=== PATIENT | male | born 1950 | race Caucasian/White ===

== ENCOUNTER → 2016-04-23 | Outpatient (CLI) | payer MEDICARE, OTHER ==
[~2016-04-23] MED LIST: ALPR0.25 PO; ASP81CT PO; ASPI-266 PO; ASPI-892 PO; ATARAX; AZIT500T PO; CIPR500T78 PO; CITA10TA PO; CITA20TA12 PO; CLPD75T PO; COLE625T9 PO; DOCU100T7 PO; FAMO20TA5 PO; HYDR-700 PO; HYOS0.1216 PO; LANS15CA PO; LORA0.5T34 PO; MTP25TSR PO; MULT-851 PO; NYST1POW15 TOP; OMEG1CAP51 PO; OMEP-10 GT; OMEP20CA12 PO; OMEP20TA2 PO; ONDA-42 PO; ONDA-42 SL; OXYC-197 PO; PANT20TA2 PO; PANT40TA PO; PANT40TA3 PO; PRD20T PO; PREDNISONE; PRV20T PO; SCR1T1 PO; SENN1TAB6 PO; SUCR1TAB PO; TEMA30CA PO; mega red
--- OUTSIDE RECORDS SUMMARY | 2016-04-23 08:29 | XMS REPORT | Continuity of Care Document ---
Author Author [facility] Organization [facility] Address Unknown Phone Unavailable Allergies Active Description Code Type Severity Reaction Onset Reported/Identified Relationship to Patient Clinical Status Yes Cephalexin Monohydrate [id number] Drug Allergy Mild N/A 12/22/2010 Yes acetaminophen [id number] Drug Allergy Unknown N/A 02/24/2014 Yes hydrocodone [id number] Drug Allergy Unknown N/A 02/24/2014 Medications Problems Date Dx Coded Attending Type Code Diagnosis Diagnosed By 12/22/2010 Ot 455.0 INT HEMORRHOID W/O COMPL 12/22/2010 Ot 530.11 REFLUX ESOPHAGITIS 12/22/2010 Ot 553.3 DIAPHRAGMATIC HERNIA 12/22/2010 Ot V58.66 LONG-TERM (CURRENT) USE OF ASPIRIN 12/22/2010 Ot V58.69 OTH MED,LT,CURRENT USE 06/12/2011 Ot 275.2 DIS MAGNESIUM METABOLISM 06/12/2011 Ot 276.8 HYPOPOTASSEMIA 06/12/2011 Ot 530.81 ESOPHAGEAL REFLUX 06/12/2011 Ot 780.2 SYNCOPE AND COLLAPSE 06/12/2011 Ot 780.8 GENERALIZED HYPERHIDROSIS 06/12/2011 Ot 787.02 NAUSEA ALONE 02/24/2014 MCKENZIE LAWSON DO Ot 276.50 VOLUME DEPLETION, UNSPECIFIED 02/24/2014 MCKENZIE LAWSON DO Ot 599.0 URIN TRACT INFECTION NOS 02/24/2014 MCKENZIE LAWSON DO Ot 780.2 SYNCOPE AND COLLAPSE 02/24/2014 MCKENZIE LAWSON DO Ot 787.91 DIARRHEA 05/14/2014 EDY CLARK RADIOLOGY TECHNICIAN Ot 607.1 BALANOPOSTHITIS 05/14/2014 EDY CLARK RADIOLOGY TECHNICIAN Ot 789.01 ABDOMINAL PAIN, RIGHT UPPER QUADRANT 05/17/2014 MCKENZIE LAWSON DO Ot 569.3 RECTAL ANAL HEMORRHAGE 05/17/2014 MCKENZIE LAWSON DO Ot 573.8 LIVER DISORDERS NEC 05/17/2014 MCKENZIE LAWSON DO Ot 783.1 ABNORMAL WEIGHT GAIN 05/17/2014 MCKENZIE LAWSON DO Ot 789.00 ABDOMINAL PAIN, UNSPECIFIED SITE 05/17/2014 MKCENZIE LAWSON DO Ot 790.5 ABN SERUM ENZY LEVEL NEC 05/30/2014 LISA CHAN MD Ot 300.00 ANXIETY STATE NOS 05/30/2014 LISA CHAN MD Ot 786.05 SHORTNESS OF BREATH 05/30/2014 ALEXANDRA YEPEZ MD Ot 789.01 05/30/2014 GELLENDER DO, LIBRA Herman Ot 790.6 05/30/2014 GELLENDER DO, LIBRA Herman Ot V58.69 06/03/2014 GELLENDER DO, LIBRA A Ot 272.4 HYPERLIPIDEMIA NEC/NOS 06/03/2014 GELLENDER DO, LIBRA Herman Ot 300.00 ANXIETY STATE NOS 06/03/2014 GELLENDER DO, LIBRA A Ot 401.9 HYPERTENSION NOS 06/03/2014 GELLENDER DO, LIBRA A Ot 427.89 CARDIAC DYSRHYTHMIAS NEC 06/03/2014 GELLENDER , LIBRA A Ot 530.81 ESOPHAGEAL REFLUX 06/03/2014 GELLENDER DO, LIBRA A Ot 786.50 CHEST PAIN NOS 06/03/2014 GELLENDER , LIBRA A Ot 790.29 OTHER ABNORMAL GLUCOSE 06/07/2014 IRAJ MEYER MD Ot 780.2 SYNCOPE AND COLLAPSE 06/13/2014 ALEXANDRA YEPEZ MD Ot 530.11 REFLUX ESOPHAGITIS 06/13/2014 ALEXANDRA YEPEZ MD Ot 535.50 UNSP GASTRITIS GASTRODUODENITIS W/O ME 06/13/2014 ALEXANDRA YEPEZ MD Ot 553.3 DIAPHRAGMATIC HERNIA 06/18/2014 ALEXANDRA YEPEZ MD Ot 789.01 06/18/2014 GELLENDER DO, LIBRA A Ot 790.6 06/18/2014 GELLENDER DO, LIBRA A Ot V58.69 06/20/2014 BAISRINIVAS BRAN PROGRAM OFFICER Ot 272.4 06/20/2014 BAISRINIVAS BRAN L PROGRAM OFFICER Ot 780.2 06/20/2014 BAISRINIVAS BRAN L PROGRAM OFFICER Ot 786.50 06/26/2014 ANTHONY MONTIEL FACC, ALI FACP CCDS Ot 272.4 HYPERLIPIDEMIA NEC/NOS 06/26/2014 ANTHONY COOPER, ALI FACP CCDS Ot 300.00 ANXIETY STATE NOS 06/26/2014 ANTHONY MONTIEL FACC, ALI FACP CCDS Ot 414.01 CORONARY ATHEROSCLEROSIS OF [place] CORON 06/26/2014 ANTHONY MONTIEL FACC, ALI FACP CCDS Ot 414.4 CORONARY ATHEROSCLEROSIS DUE TO [place] 06/26/2014 ANTHONY MONTIEL FACC, ALI FACP CCDS Ot 553.3 DIAPHRAGMATIC HERNIA 06/26/2014 ANTHONY MONTIEL FACC, ALI FACP CCDS Ot 780.2 SYNCOPE AND COLLAPSE 06/26/2014 ANTHONY MONTIEL FACC, ALI FACP CCDS Ot 785.0 TACHYCARDIA NOS 06/26/2014 ANTHONY MONTIEL FACC, ALI FACP CCDS Ot 786.59 CHEST PAIN NEC 06/26/2014 ANTHONY COOPER, ALI FACP CCDS Ot V58.69 OTH MED,LT,CURRENT USE 06/27/2014 ALEXANDRA YEPEZ MD Ot 789.01 07/21/2014 SRINIVAS TEIXEIRA L PROGRAM OFFICER Ot 272.4 07/21/2014 MIKEMA SRINIVAS L PROGRAM OFFICER Ot 780.2 07/21/2014 BAIMA, SRINIVAS L PROGRAM OFFICER Ot 786.50 08/18/2014 VIANCA NG N RADIOLOGY TECHNICIAN Ot 789.00 10/19/2014 ALEXANDRA YEPEZ MD Ot 789.01 10/19/2014 ALEXANDRA YEPEZ MD Ot 789.01 10/19/2014 LIBRA BILLINGS DO Ot 790.6 10/19/2014 LIBRA BILLINGS DO Ot V58.69 10/19/2014 ALEXANDRA YEPEZ MD Ot V72.84 10/19/2014 BAIMA, SRINIVAS L PROGRAM OFFICER Ot 272.4 10/19/2014 BAIMA, SRINIVAS L PROGRAM OFFICER Ot 780.2 10/19/2014 BAIMA, SRINIVAS L PROGRAM OFFICER Ot 786.50 10/19/2014 VIANCA NG RADIOLOGY TECHNICIAN Ot 789.00 10/19/2014 VIANCA NG RADIOLOGY TECHNICIAN Ot 550.90 10/19/2014 VIANCA NG RADIOLOGY TECHNICIAN Ot 272.4 10/19/2014 VIANCA NG RADIOLOGY TECHNICIAN Ot 780.79 10/24/2014 DIA MONTIEL, MIGUEL Shaw Ot 550.90 UNILAT INGUINAL HERNIA 10/26/2014 VIANCA NG Emelyn RADIOLOGY TECHNICIAN Ot 550.90 10/26/2014 VIANCA NG RADIOLOGY TECHNICIAN Ot 272.4 10/26/2014 VIANCA NG RADIOLOGY TECHNICIAN Ot 780.79 07/30/2015 ALEXANDRA YEPEZ MD Ot 789.01 ABDOMINAL PAIN, RIGHT UPPER QUADRANT 07/30/2015 ALEXANDRA YEPEZ MD Ot 789.01 ABDOMINAL PAIN, RIGHT UPPER QUADRANT 07/30/2015 GELLENDER DO, LIBRA A Ot 790.6 ABN BLOOD CHEMISTRY NEC 07/30/2015 KAILYNLENDER DO, LIBRA A Ot V58.69 OTH MED,LT,CURRENT USE 07/30/2015 LUCHO MONTIEL, ALEXANDRA Ot V72.84 EXAM PRE-OPERATIVE NOS 07/30/2015 BAIMA, SRINIVAS L PROGRAM OFFICER Ot 272.4 HYPERLIPIDEMIA NEC/NOS 07/30/2015 BAIMA, SRINIVAS L PROGRAM OFFICER Ot 780.2 SYNCOPE AND COLLAPSE 07/30/2015 BAIMA, SRINIVAS L PROGRAM OFFICER Ot 786.50 CHEST PAIN NOS 07/30/2015 VIANCA NG Emelyn RADIOLOGY TECHNICIAN Ot 789.00 ABDOMINAL PAIN, UNSPECIFIED SITE 07/30/2015 VIANCA NG Emelyn RADIOLOGY TECHNICIAN Ot 550.90 UNILAT INGUINAL HERNIA 07/30/2015 VIANCA NG RADIOLOGY TECHNICIAN Ot 272.4 HYPERLIPIDEMIA NEC/NOS 07/30/2015 VIANCA NG RADIOLOGY TECHNICIAN Ot 780.79 OTH MALAISE FATIGUE 07/30/2015 DIA MONTIEL, MIGUEL Shaw Ot 550.90 UNILAT INGUINAL HERNIA 07/30/2015 DIA MONTIEL, MIGUEL Shaw Ot V72.83 EXAM PRE-OPERATIVE NEC 07/30/2015 DIA MONTIEL, MIGUEL Shaw Ot V74.8 SCREEN-BACTERIAL DIS NEC 08/01/2015 BAIMA, SRINIVAS L PROGRAM OFFICER Ot E78.5 HYPERLIPIDEMIA, UNSPECIFIED 08/01/2015 BAIMA, SRINIVAS L PROGRAM OFFICER Ot I25.10 ATHSCL HEART DISEASE OF [place] CORONARY 08/01/2015 BAIMA, SRINIVAS L PROGRAM OFFICER Ot R00.0 TACHYCARDIA, UNSPECIFIED 08/17/2015 BAIMA, SRINIVAS L PROGRAM OFFICER Ot E78.5 HYPERLIPIDEMIA, UNSPECIFIED 08/17/2015 BAIMA, SRINIVAS L PROGRAM OFFICER Ot I25.10 ATHSCL HEART DISEASE OF [place] CORONARY 08/17/2015 BAIMA, SRINIVAS L PROGRAM OFFICER Ot R00.0 TACHYCARDIA, UNSPECIFIED 08/20/2015 BAIMASRINIVAS L PROGRAM OFFICER Ot E78.5 HYPERLIPIDEMIA, UNSPECIFIED 08/20/2015 BAIMA SRINIVAS L PROGRAM OFFICER Ot I25.10 ATHSCL HEART DISEASE OF [place] CORONARY 08/22/2015 BAIRITESH BRANHER L PROGRAM OFFICER Ot E78.5 HYPERLIPIDEMIA, UNSPECIFIED 08/22/2015 BAIMA, SRINIVAS L PROGRAM OFFICER Ot I25.10 ATHSCL HEART DISEASE OF [place] CORONARY 08/29/2015 BETSY MONTIEL, IRAJ Lo Ot R22.0 LOCALIZED SWELLING, MASS AND LUMP, HEAD 08/29/2015 BETSY MONTIEL, IRAJ Lo Ot T37.0X5A ADVERSE EFFECT OF [place], INITIAL 09/10/2015 BAIMA SRINIVAS L PROGRAM OFFICER Ot E78.5 HYPERLIPIDEMIA, UNSPECIFIED 09/10/2015 BAIMA, SRINIVAS L PROGRAM OFFICER Ot I25.10 ATHSCL HEART DISEASE OF [place] CORONARY 10/10/2015 PUNEET SRINIVAS L PROGRAM OFFICER Ot E78.5 HYPERLIPIDEMIA, UNSPECIFIED 10/10/2015 BAIMA, SRINIVAS L PROGRAM OFFICER Ot I25.10 ATHSCL HEART DISEASE OF [place] CORONARY 11/05/2015 Ot E78.5 HYPERLIPIDEMIA, UNSPECIFIED 11/05/2015 Ot I25.10 ATHSCL HEART DISEASE OF [place] CORONARY 11/07/2015 Ot E78.5 HYPERLIPIDEMIA, UNSPECIFIED 11/07/2015 Ot I25.10 ATHSCL HEART DISEASE OF [place] CORONARY 11/13/2015 Ot E78.5 HYPERLIPIDEMIA, UNSPECIFIED 11/13/2015 Ot I25.10 ATHSCL HEART DISEASE OF [place] CORONARY 12/13/2015 ALEXANDRA YEPEZ MD Ot 789.01 ABDOMINAL PAIN, RIGHT UPPER QUADRANT 12/13/2015 ALEXANDRA YEPEZ MD Ot 789.01 ABDOMINAL PAIN, RIGHT UPPER QUADRANT 12/13/2015 LIBRA BILLINGS DO Ot 790.6 ABN BLOOD CHEMISTRY NEC 12/13/2015 LIBRA BILLINGS DO Ot V58.69 OT MED,LT,CURRENT USE 12/13/2015 ALEXANDRA YEPEZ MD Ot V72.84 EXAM PRE-OPERATIVE NOS 12/13/2015 SRINIVAS TEIXEIRA PROGRAM OFFICER Ot 272.4 HYPERLIPIDEMIA NEC/NOS 12/13/2015 SRINIVAS TEIXEIRA PROGRAM OFFICER Ot 780.2 SYNCOPE AND COLLAPSE 12/13/2015 BAIMA, SRINIVAS L PROGRAM OFFICER Ot 786.50 CHEST PAIN NOS 12/13/2015 VIANCA NG N RADIOLOGY TECHNICIAN Ot 789.00 ABDOMINAL PAIN, UNSPECIFIED SITE 12/13/2015 VIANCA NG N RADIOLOGY TECHNICIAN Ot 550.90 UNILAT INGUINAL HERNIA 12/13/2015 VIANCA NG N RADIOLOGY TECHNICIAN Ot 272.4 HYPERLIPIDEMIA NEC/NOS 12/13/2015 VIANCA NG RADIOLOGY TECHNICIAN Ot 780.79 OTH MALAISE FATIGUE 12/13/2015 DIA MONTIEL, MIGUEL Shaw Ot 550.90 UNILAT INGUINAL HERNIA 12/13/2015 DIA MONTIEL, MIGUEL Shaw Ot V72.83 EXAM PRE-OPERATIVE NEC 12/13/2015 DIA MONTIEL, MIGUEL Shaw Ot V74.8 SCREEN-BACTERIAL DIS NEC 12/13/2015 BAIMA, SRINIVAS L PROGRAM OFFICER Ot E78.5 HYPERLIPIDEMIA, UNSPECIFIED 12/13/2015 BAIMA, SRINIVAS L PROGRAM OFFICER Ot I25.10 ATHSCL HEART DISEASE OF [place] CORONARY 12/13/2015 BAIMA, SRINIVAS L PROGRAM OFFICER Ot R00.0 TACHYCARDIA, UNSPECIFIED 12/13/2015 BAIMA, SRINIVAS L PROGRAM OFFICER Ot E78.5 HYPERLIPIDEMIA, UNSPECIFIED 12/13/2015 BAIMA, SRINIVAS L PROGRAM OFFICER Ot I25.10 ATHSCL HEART DISEASE OF [place] CORONARY 12/13/2015 BAIMA, SRINIVAS L PROGRAM OFFICER Ot E78.5 HYPERLIPIDEMIA, UNSPECIFIED 12/13/2015 BAIMA, SRINIVAS L PROGRAM OFFICER Ot I25.10 ATHSCL HEART DISEASE OF [place] CORONARY 12/13/2015 Ot E78.5 HYPERLIPIDEMIA, UNSPECIFIED 12/13/2015 Ot I25.10 ATHSCL HEART DISEASE OF [place] CORONARY 12/16/2015 BAIMA, SRINIVAS L PROGRAM OFFICER Ot E78.5 HYPERLIPIDEMIA, UNSPECIFIED 12/16/2015 BAIMA, SRINIVAS L PROGRAM OFFICER Ot I25.10 ATHSCL HEART DISEASE OF [place] CORONARY 12/25/2015 BAIMA, SRINIVAS L PROGRAM OFFICER Ot E78.5 HYPERLIPIDEMIA, UNSPECIFIED 12/25/2015 BAIMA, SRINIVAS L PROGRAM OFFICER Ot I25.10 ATHSCL HEART DISEASE OF [place] CORONARY Procedures Results Encounters ACCT No. Visit Date/Time Discharge Status Pt. Type Provider Facility Loc./Unit Complaint [id number] 08/29/2015 16:37:00 2015 18:06:00 DIS Emergency BETSY MONTIEL, IRAJ Lo [facility] ER RASH,FEVER [id number] 10/24/2014 09:09:00 2014 17:37:00 DIS Outpatient MIGUEL ALVARES MD [facility] RIGHT INGUINAL HERNIA [id number] 10/19/2014 13:55:00 2014 23:59:59 CLS Outpatient MIGUEL ALVARES MD [facility] PREOP RIGHT INGUINAL HERNIA [id number] 10/11/2014 12:14:00 2014 23:59:59 CLS Outpatient VIANCA NG RADIOLOGY TECHNICIAN [facility] RAD ENLARGED TESTICLE [id number] 10/11/2014 06:34:00 2014 23:59:59 CLS Outpatient VIANCA NG RADIOLOGY TECHNICIAN [facility] LAB MALAISE,FATIGUE,HLP [id number] 07/05/2014 13:41:00 2014 23:59:59 CLS Outpatient VIANCA NG RADIOLOGY TECHNICIAN [facility] RAD ABD PAIN, [id number] 06/25/2014 06:56:00 2014 09:50:00 DIS Outpatient ANTHONY MONTIEL FACC, LUCA BOTELLO CCDS [facility] CATH ABNORMAL STRESS, ANGINA, NEAR SYNCOPE,SOB [id number] 06/19/2014 07:30:00 2014 23:59:59 CLS Outpatient SRINIVAS TEIXEIRA [facility] CARD NEAR SYNCOPE, CP, HLP [id number] 06/13/2014 07:31:00 2014 11:35:00 DIS Outpatient ALEXANDRA YEPEZ MD [facility] ABDOMINAL PAIN [id number] 06/11/2014 06:15:00 2014 23:59:59 CLS Outpatient ALEXANDRA YEPEZ MD [facility] PREOP ABDOMINAL PAIN [id number] 06/07/2014 08:33:00 2014 11:16:00 DIS Emergency IRAJ MEYER MD [facility] ER SYNCOPAL EPISODE [id number] 06/04/2014 08:54:00 2014 23:59:59 CLS Outpatient ALEXANDRA YEPEZ MD [facility] CARD ABD PAIN [id number] 06/02/2014 10:25:00 2014 18:30:00 DIS Inpatient LIBRA BILLINGS DO [facility] ICU CHEST PAIN,ANXIETY [id number] 05/30/2014 01:12:00 2014 02:51:00 DIS Emergency LISA CHAN MD [facility] ER POSS ALLERGIC RXN [id number] 05/24/2014 06:55:00 2014 23:59:59 CLS Outpatient LIBRA BILLINGS DO [facility] LAB ELEVATED LIVER TEST [id number] 05/24/2014 06:51:00 2014 23:59:59 CLS Outpatient ALEXANDRA YEPEZ MD [facility] RAD RUQ PAIN [id number] 05/17/2014 10:42:00 2014 12:45:00 DIS Emergency RENNY MCKENZIE MCKEON [facility] ER BLOOD IN STOOL [id number] 05/14/2014 12:14:00 2014 16:54:00 DIS Emergency EDY CLARK RADIOLOGY TECHNICIAN [facility] ER ABD PAIN [id number] 02/24/2014 08:05:00 2014 10:52:00 DIS Emergency RENNY MCKENZIE [facility] ER COLLAPSED [id number] 08/30/2012 07:59:00 2012 23:59:59 CLS Outpatient [id number] 12/13/2015 08:18:00 ACT Outpatient SRINIVAS TEIXEIRA [facility] LAB HEPERLIPIDEMIA [id number] 10/30/2015 07:59:00 Document Registration [id number] 10/09/2015 08:01:00 ACT Outpatient SRINIVAS TEIXEIRA [facility] LAB CAD,HLD [id number] 08/19/2015 07:26:00 ACT Outpatient SRINIVAS TEIXEIRA [facility] LAB CAD,HLD [id number] 07/30/2015 07:09:00 ACT Outpatient SRINIVAS TEIXEIRA [facility] RAD CAD HLD SINUS TACHYCARDIA [id number] 06/11/2011 17:40:00 Document Registration [id number] 12/22/2010 07:42:00 Document Registration
--- NOTE | 2016-04-23 13:16 | Diagnostic Imaging Report ---
Ultrasound of the liver. INDICATION: Abnormal liver function. FINDINGS: The pancreas is largely obscured by bowel gas. The liver demonstrates a simple cyst between the IVC and the portal vein area in the posterior central aspect of the liver. This is similar to CT of 05/17/2014 00 with no adverse development. No other liver lesion is identified. The portal vein demonstrates hepatopetal flow. Gallstone is seen. There is no pericholecystic fluid or wall thickening. The CBD is obscured by bowel gas. The right kidney is 10.2 cm in length with no hydronephrosis or focal lesion. Sonographic Baptiste sign is reportedly negative. IMPRESSION: Cholelithiasis. Dictated by: Dictated on workstation # [id number]
== END ==
LOC: RAD 08:25
PROVIDERS: ATTEND Nurse Practitioner Family
DX: K76.89 Other specified diseases of liver (principal)
CPT/HCPCS: 76705

== ENCOUNTER → 2016-06-11 | Outpatient (CLI) | payer MEDICARE, OTHER ==
[~2016-06-11] VITALS: Ht 172.7 cm; Wt 105.2 kg
[~2016-06-11] MED LIST changes: +CATHETER FLUSH 10 ML SYR IV PRN; +REGADENOSON 0.4 MG/5 ML SYR (LEXISCAN) IV ONE
[2016-06-11 09:20] VITALS: BP 136/83
--- NOTE | 2016-06-15 05:59 | STRESS TEST ---
DATE OF SERVICE: 06/11/2016 Resting and post regadenoson, technetium-99m tetrofosmin single-photon emission commuted tomography DATE OF SERVICE: 06/11/16. ORDERING PHYSICIAN: Kirti Sun APRN. PRIMARY PHYSICIAN: Dr. Kitchen. OTHER PHYSICIAN: Dr. Cruz. CLINICAL DIAGNOSES: Chest pain, coronary artery disease, hyperlipidemia. Baseline images were carried out after injection of 10.17 mCi of technetium-99m Tetrofosmin. This was followed by 0.4 mg of regadenoson and 31.5 mCi of technetium-99m Tetrofosmin for SPECT imaging. Review of images addressed following stress indicates a small to moderate basal inferior perfusion defect which is transient. Gated images show normal global left ventricular systolic function with normal regional wall motion. Left ventricular ejection fraction is calculated to be 78%. Left ventricular end-diastolic volume is 59 mL. CONCLUSIONS: 1. The study is indicative of a small to moderate amount of basal inferior ischemia. 2. Normal regional wall motion. 3. Normal global left ventricular systolic function with a calculated ejection fraction of 78%. 4. Normal left ventricular cavity size. Job ID: [id number] DocumentID: [id number] Dictated Date: 06/12/2016 15:09:59 Booking Clerk Date: 06/12/2016 16:54:21 Dictated By: LUCA CRUZ MD, MA, FACP, FACC, MTDD
== END ==
LOC: CARD 07:38
PROVIDERS: ATTEND Nurse Practitioner Family
DX: I25.10 Atherosclerotic heart disease of native coronary artery without angina pectoris (principal); I65.23 Occlusion and stenosis of bilateral carotid arteries; E78.4 Other hyperlipidemia; I07.1 Rheumatic tricuspid insufficiency; R07.89 Other chest pain
CPT/HCPCS: 78452; 93017

== ENCOUNTER → 2016-06-15 | Outpatient (CLI) | payer MEDICARE, OTHER ==
[~2016-06-15] MED LIST changes: -CATHETER FLUSH 10 ML SYR IV PRN; -REGADENOSON 0.4 MG/5 ML SYR (LEXISCAN) IV ONE
--- NOTE | 2016-06-17 10:33 | ECHOCARDIOGRAPHY REPORT ---
DATE OF SERVICE: 06/15/2016 ORDERING PHYSICIAN: Kirti Sun APRN. PRIMARY CARE PHYSICIAN: Dr. Stanford. OTHER PHYSICIAN: Dr. Cruz. CLINICAL DIAGNOSES: Chest pain, coronary artery disease. MEASUREMENTS: Aortic root, 3.1. Left atrium, 3.4. LV diameter, diastolic, 3.6. IVS thickness, diastolic, 1.1. LVPW thickness, diastolic, 1.1. DESCRIPTION: This is a technically somewhat difficult study. Global left ventricular systolic function is well preserved. No distinct regional wall motion abnormality is seen, on the views available. The left ventricular ejection fraction is approximately 60%. Aortic, mitral, and tricuspid valve leaflets, to the extent seen, exhibit good leaflet excursion. No significant pericardial effusion is seen. Doppler imaging does not indicate any significant valvular regurgitation or stenosis. Pulmonary artery systolic pressure is estimated to be within normal limits. CONCLUSIONS: 1. Technically difficult study. 2. Normal global left ventricular systolic function with an ejection fraction approximately 65%. 3. No evidence of significant valvular regurgitation or stenosis on this study. Job ID: [id number] DocumentID: [id number] Dictated Date: 06/16/2016 16:41:11 Marine Geologist Date: 06/17/2016 08:32:21 Dictated By: LUCA CRUZ MD, MA, FACP, FACC,
== END ==
LOC: CARD 14:08
PROVIDERS: ATTEND Nurse Practitioner Family
DX: R07.89 Other chest pain (principal); I25.10 Atherosclerotic heart disease of native coronary artery without angina pectoris; I65.23 Occlusion and stenosis of bilateral carotid arteries; E78.4 Other hyperlipidemia; I07.1 Rheumatic tricuspid insufficiency
CPT/HCPCS: 93306

== ENCOUNTER 2016-06-23 08:17 | Day surgery (SDC) | payer MEDICARE, OTHER ==
[~2016-06-23] VITALS: Ht 172.7 cm; Wt 105.2 kg
[~2016-06-23 08:17] MED LIST changes: -COLE625T9 PO; -MULT-851 PO; -PANT40TA3 PO
[2016-06-23] MEDS ORDERED: LIDOCAINE 1% INJ 20 ML (XYLOCAINE) VIAL ONE (08:58)
[2016-06-23] MEDS ORDERED: NS IV 1000 ML 1,000 ML ONE ×2 (08:58→13:54)
[2016-06-23] MEDS ORDERED: HEParin (CATH LAB) 2,000 ML IV ONE (08:59)
[2016-06-23] MEDS ORDERED: NS IV 1000 ML 1,000 ML IV SCH ×2 (09:08→14:58)
[2016-06-23 09:16] VITALS: BP 144/82
[2016-06-23 09:28] LABS: MEAN PLATELET VOLUME 10.6 FL (7.4-10.4); RED BLOOD COUNT 5.15 10^6/uL (4.35-5.85); RED CELL DISTRIBUTION WIDTH 14.2 % (10.0-14.5); WHITE BLOOD COUNT 7.5 10^3/uL (4.3-11.0)
[2016-06-23 09:42] LABS: INR 0.9 (0.8-1.4); PROTHROMBIN TIME PATIENT 12.3 SEC (12.2-14.7)
[2016-06-23 09:46] LABS: ALANINE AMINOTRANSFERASE 62 U/L (0-55); ALBUMIN 4.4 G/DL (3.2-4.5); ANION GAP 10 MMOL/L (5-14); ASPARTATE AMINO TRANSFERASE 61 U/L (5-34); BLOOD UREA NITROGEN 13 MG/DL (7-18); BUN/CREATININE RATIO 14; CALCIUM 9.3 MG/DL (8.5-10.1); CARBON DIOXIDE 23 MMOL/L (21-32); CHLORIDE 108 MMOL/L (98-107); CREATININE SERUM 0.96 MG/DL (0.60-1.30); GFR ESTIMATED > 60; GLUCOSE 102 MG/DL (70-105); SODIUM 141 MMOL/L (135-145); TOTAL PROTEIN 7.3 G/DL (6.4-8.2)
[2016-06-23] MEDS ORDERED: PANT40TA3 PO (10:11)
[2016-06-23] MEDS ORDERED: MULT-851 PO (10:11)
[2016-06-23] MEDS ORDERED: COLE625T9 PO (10:11)
[2016-06-23] MEDS ORDERED: diphenhydrAMINE 50 MG/ML INJ (BENADRYL) ONE (13:02)
[2016-06-23] MEDS ORDERED: fentaNYL INJECTION 100 MCG/2 ML AMP ONE (13:02)
[2016-06-23] MEDS ORDERED: MIDAZOLAM 5 MG/5 ML (VERSED) VIAL ONE (13:02)
--- NOTE | 2016-06-23 13:34 | Cardiac Procedure Note-CS/ASA ---
Pre-Procedure Note Pre-Op Procedure Note H&P Reviewed The H&P was reviewed, patient examined and no changes noted. Date H&P Reviewed: June 23, 2016 Time H&P Reviewed: 13:33 Conscious Sedation Pre-Proced Time Reviewed: 13:33 ASA Class: 3 Airway Mallampati Classification: (port lions appropriate class) I. II. III, IV Lungs Heart ASA score ASA 1: a normal healthy patient ASA 2: a patient with a mild systemic disease (mid diabetes, controlled hypertension, obesity ASA 3: a patient with a severe systemic disease that limits activity (angina , COPD, prior Myocardial infarction) ASA 4: a patient with an incapacitating disease that is a constant threat to life (CHF, renal failure) ASA 5: a moribund patient not expected to survive 24 hrs. (ruptured aneurysm) ASA 6: a declared brain patient whose organs are being harvested. For emergent operations, add the letter E after the classification Grade 2 Sedation Plan: Analgesia, Amnesia, Plan communicated to team members, Discussed options with patient/fam, Discussed risks with patient/fam Note The patient is an appropriate candidate to undergo the planned procedure, sedation, and anesthesia. The patient immediately re-assessed prior to indication. LUCA CRUZ MD FACP FAC CCDS June 23, 2016 13:34
[2016-06-23] MEDS ORDERED: ADENOSINE 3 MG/1 ML (ADENOSCAN) 30ML VIAL IV ONE (13:39)
[2016-06-23] MEDS ORDERED: HEParin 1000 UNIT/ML (10ML VIAL) FOR BOLUS ONE (13:39)
[2016-06-23] MEDS ORDERED: NITROGLYCERIN DRIP 25 MG/D5W 250 ML IV ONE (13:43)
[2016-06-23] MEDS ORDERED: EPTIFIBATIDE BOLUS 20 ML IV ONE (13:46)
[2016-06-23] MEDS ORDERED: EPTIFIBATIDE DRIP 100 ML IV ONE (13:59)
[2016-06-23] MEDS ORDERED: NS IV 1000 ML 1,000 ML IV ONE (14:00)
[2016-06-23] MEDS ORDERED: PATIENT MAY USE OWN MEDS, ALL PO SCH (15:00)
[2016-06-23] MEDS: EPTIFIBATIDE DRIP 100 ML IV SCH ×2 (15:00→17:47)
[2016-06-23 15:05] VITALS: BP 111/72
--- NOTE | 2016-06-23 15:28 | Cardiology Discharge Summary ---
Diagnosis/Chief Complaint Date of Admission 06/23/16 Date of Discharge 06/23/16 Final/Discharge Diagnosis CAD: Cath of 06/23/16 shows CAD primarily consisting of 95% prox RCA stenosis, prox to a previously placed 2.25 x 25 mm stent that also exhibits 80-90% instent restenosis. Attempts at intervention to this vessel were unsuccessful. The other cors have mild disease. LVEF 60%, normal LVEDP Hyperlipidemia Intolerance to stains H/o GERD and HH Chief Complaint/HPI Chief Complaint/HPI Please refer to H&P for details of admission and cath and intervention report for procedures performed today Being transferred to [facility] for consideration of further cor intervention/ bypass (Dr Monroy at [facility], [place]) Discharge Summary Procedures Card cath and cor intervention (see report). Hospital Course Pending Labs Laboratory Tests 06/23/16 09:20: White Blood Count 7.5, Red Blood Count 5.15, Hemoglobin 16.0, Hematocrit 48, Mean Corpuscular Volume 93, Mean Corpuscular Hemoglobin 31, Mean Corpuscular Hemoglobin Concent 33, Red Cell Distribution Width 14.2, Platelet Count 229, Mean Platelet Volume 10.6, Prothrombin Time 12.3, INR Comment 0.9, Activated Partial Thromboplast Time 26, Sodium Level 141, Potassium Level 4.0, Chloride Level 108, Carbon Dioxide Level 23, Anion Gap 10, Blood Urea Nitrogen 13, Creatinine 0.96, Estimat Glomerular Filtration Rate > 60, BUN/Creatinine Ratio 14, Glucose Level 102, Calcium Level 9.3, Total Bilirubin 1.0, Aspartate Amino Transf (AST/SGOT) 61, Alanine Aminotransferase (ALT/SGPT) 62, Alkaline Phosphatase 76, Total Protein 7.3, Albumin 4.4 Discussion & Recommendations Home Medications Reviewed patient Home Medication Reconciliation Form Discharge Home Medications: Reviewed and agree with Discharge Medication list on patient's Discharge Instruction sheet [facility] CRUZ MD [facility] F[facility] CCD[facility] June 23, 2016 15:28
--- NOTE | 2016-06-23 18:28 | CARDIAC CATHETERIZATION ---
DATE OF SERVICE: 06/23/2016 The patient is a 66-year-old gentleman who is known to have coronary disease and has had right coronary artery stenting consisting of a 2.25x25 mm stent a few years back. A recent myocardial perfusion imaging study indicated considerable basal inferior ischemia. Cardiac catheterization is carried out today after having obtained an informed consent for cardiac catheterization and possible ad hoc coronary intervention. PROCEDURE: He was brought to the cardiac catheterization laboratory in a fasting state. The right groin was prepared and draped in the usual sterile fashion and 1% lidocaine was used for local anesthesia. Modified Seldinger technique was used to advance a 5 Kazakh sheath through the right femoral artery. A 5 Kazakh JL4 catheter was used for left coronary angiography. A 5 Kazakh JR4 catheter was used for right coronary angiography. A 5 Kazakh pigtail catheter was used for left heart catheterization and left ventricular angiography. PERCUTANEOUS INTERVENTION TO THE RIGHT CORONARY ARTERY: Following completion of the diagnostic procedure, we carried out percutaneous intervention of the right coronary artery. We exchanged the sheath over a wire for a 6 Kazakh sheath. We gave 5000 units of intravenous heparin bolus and a double bolus of Integrilin was given and Integrilin infusion was continued throughout the procedure. We used a 6 Kazakh JR for guide catheter with side holes to engage the right coronary artery. We used multiple wires to try and cross the lesion in the proximal right coronary artery but were unable to do so. We then also used a 300 mm BMW wire within a push balloon and the balloon was pushed right up to the lesion but we were still unable to cross the lesion. The lesion remained essentially unchanged at the conclusion of the procedure. The flow throughout the distal vessel prior to the procedure was MATY 2. Following the procedure, the flow was MATY 1 to 2. He does not have ST elevation and does not report chest disco and is hemodynamically stable. We called Dr. Monroy of the cardiovascular service at [facility] and have requested to transfer the patient for further attempts at intervention and to see if the vessel would require bypass surgery. Dr. Monroy has kindly accepted the transfer and arrangements are being made. HEMODYNAMICS: Left ventricular end-diastolic pressure following coronary angiography was 7 mmHg. There was no significant pressure gradient on pullback across the aortic valve. Ascending aortic pressure was 114/67 with a mean of 86 mmHg. LEFT VENTRICULAR ANGIOGRAPHY: Left ventricular angiography was carried out in the right anterior oblique projection. Global left ventricular systolic function is normal. Left ventricular ejection fraction is approximately 60%. CORONARY ANGIOGRAPHY: Left main coronary artery does not appear to have significant obstructive disease. Left anterior descending artery has approximately 40% proximal stenosis. Left circumflex artery has mild diffuse plaques. Right coronary artery is dominant and has 95% proximal stenosis, proximal to a previously placed stent. The previously placed stent is patent but does exhibit 80% to 90% instent restenosis. This lesion remains unchanged despite multiple efforts at percutaneous intervention. CONCLUSIONS: 1. Coronary artery disease primarily consisting of 95% stenosis proximal to the proximal edge of the previously placed stent which itself exhibits 80% to 90% instent restenosis. The distal flow is somewhat slow. The lesion remains unchanged despite multiple attempts at coronary intervention today, as detailed above. 2. Normal global left ventricular systolic function with ejection fraction of approximately 60%. 3. Normal left ventricular end diastolic pressure. RECOMMENDATIONS: As stated above, we have spoken with Dr. Monroy of the cardiovascular services at [facility] and have requested transfer to [facility] for consideration of further intervention/bypass surgery to the vessel. The sheath remains in place. The patient is hemodynamically stable and asymptomatic. Integrilin infusion is being continued for now. Arrangements are being made for transfer. Job ID: [id number] DocumentID: [id number] Dictated Date: 06/23/2016 15:19:35 Computed Tomography Technologist Date: 06/23/2016 18:27:14 Dictated By: LUCA CRUZ MD, MA, FACP, FACC, MTDD
== END 2016-06-23 18:00 | disposition short-term general hospital (02) ==
LOC: CATH 08:17 → ICU 15:23 → CATH 18:00
PROVIDERS: ATTEND Internal Medicine Cardiovascular Disease
DX: I25.10 Atherosclerotic heart disease of native coronary artery without angina pectoris (principal); T82.855A Stenosis of coronary artery stent, initial encounter; F41.9 Anxiety disorder, unspecified; K44.9 Diaphragmatic hernia without obstruction or gangrene; Z79.899 Other long term (current) drug therapy; Z95.5 Presence of coronary angioplasty implant and graft
CPT/HCPCS: 36415; 80053; 85027; 85610; 85730; 87081; 92920; 93458

== ENCOUNTER → 2018-06-27 | Outpatient (CLI) | payer MEDICARE, OTHER ==
[~2018-06-27] MED LIST changes: +COLE625T9 PO; +MULT-851 PO; -OXYC-197 PO; +OXYC1TAB87 PO; +PANT40TA3 PO
== END ==
LOC: CARD 11:15
PROVIDERS: ATTEND Internal Medicine Cardiovascular Disease
DX: I25.10 Atherosclerotic heart disease of native coronary artery without angina pectoris (principal); E78.5 Hyperlipidemia, unspecified; R06.02 Shortness of breath; E66.9 Obesity, unspecified; Z68.35 Body mass index [BMI] 35.0-35.9, adult
CPT/HCPCS: 93306

== ENCOUNTER → 2018-06-28 | Outpatient (CLI) | payer MEDICARE, OTHER ==
[~2018-06-28] VITALS: Ht 172.7 cm; Wt 98.0 kg
[~2018-06-28] MED LIST changes: +CATHETER FLUSH 10 ML SYR IV PRN; +REGADENOSON 0.4 MG/5 ML SYR (LEXISCAN) IV ONE
[2018-06-28 09:17] VITALS: BP 149/86
--- NOTE | 2018-06-28 16:11 | STRESS TEST ---
DATE OF SERVICE: 06/28/2018 RESTING AND POST REGADENOSON TECHNETIUM-99M TETROFOSMIN SPECT CT IMAGING ORDERING PHYSICIAN: Dr. Mora. PRIMARY PHYSICIAN: Dr. Stanford. CLINICAL DIAGNOSES: Coronary artery disease, shortness of breath. Baseline images were carried out after injection of 10.07 mCi of technetium-99m Tetrofosmin. This was followed by 0.4 mg regadenoson and 30.5 mCi of technetium-99m Tetrofosmin for stress imaging. The electrocardiogram showed sinus rhythm and did not change significantly with the regadenoson infusion. The patient tolerated the procedure well. Review of images at rest and following stress does not indicate any distinct perfusion defects consistent with significant myocardial ischemia or infarction. Gated images show normal global left ventricular systolic function, normal regional wall motion. Left ventricular ejection fraction is calculated to be 76%. Left ventricular end diastolic volume is 41 mL. TID is absent (0.97). CONCLUSIONS: 1. No evidence of any significant myocardial ischemia or infarction on this study. 2. Normal global left ventricular systolic function with a calculated ejection fraction of 76%. 3. No significant regional wall motion abnormalities seen on this study. Job ID: [id number] DocumentID: [id number] Dictated Date: 06/28/2018 13:47:53 Professor Of Art Date: 06/28/2018 16:11:33 Dictated By: LUCA MORA MD, MA, FACP, FACC,
== END ==
LOC: CARD 07:03
PROVIDERS: ATTEND Internal Medicine Cardiovascular Disease
DX: I25.10 Atherosclerotic heart disease of native coronary artery without angina pectoris (principal); I77.9 Disorder of arteries and arterioles, unspecified; E78.5 Hyperlipidemia, unspecified; E66.8 Other obesity; R06.02 Shortness of breath
CPT/HCPCS: 78452; 93017

== ENCOUNTER → 2018-12-26 | Outpatient (CLI) | payer MEDICARE, OTHER ==
[~2018-12-26] MED LIST changes: -CATHETER FLUSH 10 ML SYR IV PRN; -REGADENOSON 0.4 MG/5 ML SYR (LEXISCAN) IV ONE
--- NOTE | 2018-12-26 18:04 | Diagnostic Imaging Report ---
INDICATION: Right flank pain, hematuria. FINDINGS: Bowel gas pattern is normal. No radiopaque calculus disease found. IMPRESSION: Unremarkable abdominal radiographs. Dictated by: Dictated on workstation # [id number]
== END ==
LOC: RAD 16:51
PROVIDERS: ATTEND Nurse Practitioner Family
DX: R31.29 Other microscopic hematuria (principal); R10.9 Unspecified abdominal pain
CPT/HCPCS: 74018

== ENCOUNTER → 2021-11-28 | Outpatient (CLI) | payer MEDICARE, OTHER ==
[~2021-11-28] MED LIST changes: +COLE625T30 PO; -COLE625T9 PO; -PANT40TA3 PO; +PANT40TA52 PO
== END ==
LOC: CARD 09:25
PROVIDERS: ATTEND Nurse Practitioner Family
DX: I51.9 Heart disease, unspecified (principal)
CPT/HCPCS: 93306

== ENCOUNTER → 2021-12-05 | Outpatient (CLI) | payer MEDICARE, OTHER ==
[~2021-12-05] MED LIST changes: +CATHETER FLUSH 10 ML SYR IVP PRN; +REGADENOSON 0.4 MG/5 ML SYR (LEXISCAN) IV ONE
[2021-12-05 09:03] VITALS: BP 141/82
== END ==
LOC: CARD 08:00
PROVIDERS: ATTEND Nurse Practitioner Family
DX: I25.10 Atherosclerotic heart disease of native coronary artery without angina pectoris (principal)
CPT/HCPCS: 78452; 93017; A9502

== ENCOUNTER 2021-12-09 06:06 | Emergency (ER) | payer MEDICARE, OTHER ==
[~2021-12-09] VITALS: Ht 175.3 cm; Wt 86.2 kg
[~2021-12-09 06:06] MED LIST changes: -CATHETER FLUSH 10 ML SYR IVP PRN; -REGADENOSON 0.4 MG/5 ML SYR (LEXISCAN) IV ONE
--- NOTE | 2021-12-09 06:55 | ED GI ---
General Chief Complaint: Abdominal/GI Problems Stated Complaint: BLOOD IN STOOLS Nursing Triage Note: pt ambulatory to room. pt states he has had bloody stools for approx 1 months. states he had 3 bright red stools throughout the night that urged him to come in this am. pt history is unclear. states "they suggested setting up a colonoscopy" but unable to state who he has seen for this, who made that suggestion, and/or when he was seen. pt denies any abd pain. states he does have hx of hemorrhoids but does not know if this is from that or something else. pt states he takes a blood thinner but unsure which one Source of Information: Patient, Old Records Exam Limitations: No Limitations History of Present Illness Date Seen by Provider: Dec 09, 2021 Time Seen by Provider: 18:20 Initial Comments This 71-year-old gentleman presents to the emergency room this morning with complaints of bright red blood per rectum x3 in the night. He occasionally has some sharp pain in the rectal area not necessarily associated with bowel movements. He has been noting some bloody stools for about 1 month. He denies any abdominal pain. He had a colonoscopy in 2010 showing hemorrhoids but no other pathology. He has history of hemorrhoid banding. He has not had a colonoscopy since. He presently takes Plavix for history of coronary artery disease status post stenting in 2016. His primary care provider is Kirti cervantes and his blue leather sorter is Dr. Mora. Patient reports he was seen about a month ago at the [facility] clinic and was prescribed some suppositories. These were presumably steroids, but I do not have a record of the prescription and he is not certain what they were. He ran out of the medication many days ago. He has a colonoscopy scheduled in [place] for December 26. Allergies and Home Medications Allergies Coded Allergies: Cephalexin Monohydrate (Unverified Allergy, Mild, 12/22/10) sulfamethoxazole (Unverified Allergy, Unknown, 06/11/16) trimethoprim (Unverified Allergy, Unknown, 06/11/16) acetaminophen (Unverified Adverse Reaction, Unknown, 02/24/14) hydrocodone (Unverified Adverse Reaction, Unknown, 02/24/14) Patient Home Medication List Home Medication List Reviewed: Yes Aspirin (Aspirin Ec Low Dose) 81 Mg Tablet., 81 MG PO 1800, (Reported) Entered as Reported by: SANAZ PITTS on 06/25/14 1242 Colesevelam HCl (Welchol) 625 Mg Tablet, 625 MG PO BID, (Reported) Entered as Reported by: LUIGI NAVAS on 06/23/16 1011 Multivits-Minerals/FA/Lycopene (One Daily For Men Tablet) 1 Each Tablet, 1 TAB PO DAILY, (Reported) Entered as Reported by: LUIGI NAVAS on 06/23/16 1011 Pantoprazole Sodium (Pantoprazole Sodium) 40 Mg Tablet.dr, 40 MG PO DAILY, (Reported) Entered as Reported by: LUIGI NAVAS on 06/23/16 1011 Review of Systems Review of Systems Constitutional: no symptoms reported EENTM: No Symptoms Reported Respiratory: No Symptoms Reported Cardiovascular: See HPI Gastrointestinal: See HPI Genitourinary: No Symptoms Reported Musculoskeletal: no symptoms reported Skin: no symptoms reported Psychiatric/Neurological: No Symptoms Reported Endocrine: No Symptoms Reported Hematologic/Lymphatic: See HPI Past Bifjvzj-Dqyjhg-Hikxht Hx Patient Social History Tobacco Use?: No Use of E-Cig and/or Vaping dev: No Substance use?: No Alcohol Use?: No Immunizations Up To Date Tetanus Booster (TDap): Unknown Influenza Vaccine Up-to-Date: No; Not Current Seasonal Allergies Seasonal Allergies: Yes Past Medical History Surgeries: Yes Abdominal (Colonoscopy, EGD, right inguinal hernia repair), Coronary Stent, Orthopedic, Rectal (Hemorrhoid banding) Respiratory: No Cardiac: Yes Coronary Artery Disease, High Cholesterol Neurological: No Reproductive Disorders: No Genitourinary: No Gastrointestinal: Yes Abdominal Hernia (Umbilical), Gastroesophageal Reflux, Hemorrhoids, Hiatal Hernia Musculoskeletal: No Endocrine: No HEENT: No Cancer: No Anxiety Recent Skin Changes Family Medical History Alzheimer's disease 19 MOTHER Cardiovascular disease 19 FATHER Hypercholesterolemia 19 MOTHER G8 BROTHER Hypertension 19 FATHER Heart Disease, Hypertension, Psychiatric Problems Physical Exam Vital Signs Vital Signs - First Documented 12/09/21 06:16 Temp 36.8 Pulse 56 Resp 16 B/P (MAP) 142/95 (111) Pulse Ox 98 Capillary Refill : Height/Weight/BMI Height: 5'8.00" Weight: 216lbs. 0.0oz. 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, no motor/sensory deficits, alert, normal mood/affect, oriented x 3 Skin: normal color, warm/dry Progress/Results/Core Measures Results/Orders Lab Results Laboratory Tests Test 12/09/21 06:51 Range/Units White Blood Count 6.0 4.3-11.0 10^3/uL Red Blood Count 5.29 4.30-5.52 10^6/uL Hemoglobin 13.8 13.3-17.7 g/dL Hematocrit 45 40-54 % Mean Corpuscular Volume 85 80-99 fL Mean Corpuscular Hemoglobin 26 25-34 pg Mean Corpuscular Hemoglobin Concent 31 L 32-36 g/dL Red Cell Distribution Width 24.3 H 10.0-14.5 % Platelet Count 215 130-400 10^3/uL Mean Platelet Volume 11.2 9.0-12.2 fL Immature Granulocyte % (Auto) 0 % Neutrophils (%) (Auto) 66 42-75 % Lymphocytes (%) (Auto) 21 12-44 % Monocytes (%) (Auto) 10 0-12 % Eosinophils (%) (Auto) 3 0-10 % Basophils (%) (Auto) 0 0-10 % Neutrophils # (Auto) 4.0 1.8-7.8 10^3/uL Lymphocytes # (Auto) 1.3 1.0-4.0 10^3/uL Monocytes # (Auto) 0.6 0.0-1.0 10^3/uL Eosinophils # (Auto) 0.2 0.0-0.3 10^3/uL Basophils # (Auto) 0.0 0.0-0.1 10^3/uL Immature Granulocyte # (Auto) 0.0 0.0-0.1 10^3/uL Prothrombin Time 14.1 12.2-14.7 SEC INR Comment 1.0 0.8-1.4 Activated Partial Thromboplast Time 28 24-35 SEC Sodium Level 139 135-145 MMOL/L Potassium Level 3.7 3.6-5.0 MMOL/L Chloride Level 104 98-107 MMOL/L Carbon Dioxide Level 26 21-32 MMOL/L Anion Gap 9 5-14 MMOL/L Blood Urea Nitrogen 16 7-18 MG/DL Creatinine 1.04 0.60-1.30 MG/DL Estimat Glomerular Filtration Rate 77 BUN/Creatinine Ratio 15 Glucose Level 108 H 70-105 MG/DL Calcium Level 9.3 8.5-10.1 MG/DL Corrected Calcium 9.0 8.5-10.1 MG/DL Total Bilirubin 0.7 0.1-1.0 MG/DL Aspartate Amino Transf (AST/SGOT) 31 5-34 U/L Alanine Aminotransferase (ALT/SGPT) 29 0-55 U/L Alkaline Phosphatase 75 40-136 U/L Total Protein 7.4 6.4-8.2 GM/DL Albumin 4.4 3.2-4.5 GM/DL My Orders Orders - SHAHEEN SARKAR MD Cbc With Automated Diff (12/09/21 06:38) Comprehensive Metabolic Panel (12/09/21 06:38) Protime With Inr (12/09/21 06:38) Partial Thromboplastin Time (12/09/21 06:38) Ed Iv/Invasive Line Start (12/09/21 06:38) Fecal Occult Bedside (12/09/21 06:55) Vital Signs/I&O 12/09/21 06:16 Temp 36.8 Pulse 56 Resp 16 B/P (MAP) 142/95 (111) Pulse Ox 98 Blood Pressure Mean: 111 Progress Progress Note #1: Time: 07:06 Progress Note Labs are pending at this time. Digital rectal exam revealed no masses or bulky hemorrhoids. There was no fissure or active bleeding evident. There was some liquidy dark, slightly greenish stool at the anus and on gloved finger with digital rectal exam. Patient is quite anxious about the situation and asked for medication to help him relax. He drove himself here and is driving home, so th at request was denied at this time. Progress Note #2: Time: 08:42 Progress Note Labs were unremarkable and patient had stable vital signs. He has an appointment for colonoscopy in early December. I advised stopping clopidogrel for 2 days and adhering to a clear liquid diet to reduce risk of further bleeding. Return precautions given. Patient was stable for discharge. He did request something for anxiety while in the ER, but this request was declined as he is driving home. We discussed treatment options. See discharge instructions for further discussion. Departure Impression Primary Impression: Rectal bleeding Additional Impressions: Insomnia Qualified Codes: G47.00 - Insomnia, unspecified Anxiousness Disposition: HOME, SELF-CARE Condition: Stable Departure-Patient Inst. Referrals: KIRTI LARKIN APRN (PCP/Family) Primary Care Physician Patient Instructions: Gastrointestinal Bleeding Add. Discharge Instructions: Please proceed with plans for colonoscopy. That is the next step in determining the cause of your bleeding. It Skip your dose of Plavix (clopidogrel) today and tomorrow. This will help stop the bleeding. Also have a clear liquid diet for the next 24 hours. This will help your bowels rest and stop the bleeding. Clear liquids may include sports drinks, water, Jell-O, chicken broth, etc. Gradually advance your diet with small quantities of bland food tomorrow after a clear liquid breakfast. Return to the emergency room if you have escalating symptoms including worsening bleeding, worsening pain, fever, etc. Call your doctor with questions or concerns. For your anxiousness, you may try Benadryl (diphenhydramine) 25 to 50 mg every 4 hours as needed. This may make you drowsy, so do not drive, operate machinery, or make important decisions while you are taking Benadryl. Benadryl may work well for helping you sleep at night also. You may a lternatively try melatonin up to 2 mg before bed or Unisom (dicyclomine) per package instructions. Please follow-up with your primary care provider within the next couple of weeks. Call today to make an appointment. All discharge instructions reviewed with patient and/or family. Voiced understanding. Copy Copies To 1: [facility]/SHAHEEN PUTNAM MD Dec 09, 2021 06:55
[2021-12-09 07:02] LABS: BASOPHILS % (AUTO) 0 % (0-10); EOSINOPHILS # (AUTO) 0.2 10^3/uL (0.0-0.3); EOSINOPHILS % (AUTO) 3 % (0-10); HEMATOCRIT 45 % (40-54); HEMOGLOBIN 13.8 g/dL (13.3-17.7); LYMPHOCYTES # (AUTO) 1.3 10^3/uL (1.0-4.0); LYMPHOCYTES % (AUTO) 21 % (12-44); MEAN CORPUSCULAR HEMOGLOBIN 26 pg (25-34); MEAN CORPUSCULAR HGB CONC 31 g/dL (32-36); MEAN CORPUSCULAR VOLUME 85 fL (80-99); MEAN PLATELET VOLUME 11.2 fL (9.0-12.2); MONOCYTES # (AUTO) 0.6 10^3/uL (0.0-1.0); MONOCYTES % (AUTO) 10 % (0-12); NEUTROPHILS % (AUTO) 66 % (42-75); PLATELET COUNT 215 10^3/uL (130-400)
[2021-12-09 07:09] LABS: ALBUMIN 4.4 GM/DL (3.2-4.5); POTASSIUM 3.7 MMOL/L (3.6-5.0)
[2021-12-09 07:10] LABS: CALCIUM 9.3 MG/DL (8.5-10.1)
[2021-12-09 07:12] LABS: TOTAL PROTEIN 7.4 GM/DL (6.4-8.2)
[2021-12-09 07:13] LABS: BILIRUBIN,TOTAL 0.7 MG/DL (0.1-1.0)
[2021-12-09 07:15] LABS: CREATININE SERUM 1.04 MG/DL (0.60-1.30)
[2021-12-09 08:03] LABS: PROTHROMBIN TIME PATIENT 14.1 SEC (12.2-14.7)
[2021-12-09 08:43] VITALS: BP 153/89
== END 2021-12-09 08:43 | disposition home or self-care (01) ==
LOC: EDUNIT# 06:06 → ER 06:11
DX: K62.5 Hemorrhage of anus and rectum (principal); G47.00 Insomnia, unspecified; F41.9 Anxiety disorder, unspecified; I25.10 Atherosclerotic heart disease of native coronary artery without angina pectoris; Z79.02 Long term (current) use of antithrombotics/antiplatelets
CPT/HCPCS: 36415; 80053; 82274; 85025; 85610; 85730